=== PATIENT | female | born 1950 | race Caucasian/White ===

== ENCOUNTER 2017-07-25 05:27 | Day surgery (SDC) | payer OTHER, MEDICARE ==
[~2017-07-25] VITALS: Ht 167.6 cm; Wt 83.9 kg
[~2017-07-25 05:27] MED LIST: CRESTOR20 MG PO; PROTONIX40 MG PO; WELLBUTRIN XL300 MG PO; ZOLOFT100 MG PO
[2017-07-25 06:10] VITALS: BP 130/62
[2017-07-25 08:52] VITALS: BP 151/65
[2017-07-25 09:38] VITALS: BP 138/65
== END 2017-07-25 09:40 | disposition home or self-care (01) ==
LOC: SDC 05:27
DX: H35.342 Macular cyst, hole, or pseudohole, left eye (principal); K21.9 Gastro-esophageal reflux disease without esophagitis; I34.1 Nonrheumatic mitral (valve) prolapse; E78.00 Pure hypercholesterolemia, unspecified; E66.9 Obesity, unspecified; Z88.1 Allergy status to other antibiotic agents; Z88.5 Allergy status to narcotic agent
CPT/HCPCS: J0690; J2405; J3300